=== PATIENT | female | born 1965 ===

== ENCOUNTER 2018-11-20 20:43 | Emergency (ER) | payer OTHER ==
[2018-11-20 21:17] VITALS: BP 154/73; PULSE 74; RESP 18; TEMP 99; O2SAT 98
--- NOTE | 2018-11-20 21:22 | C.PDOC ---
History Of Present Illness 53 y/o female pt presents to the ER c/o whistling sound and pain in the left ear for x1 week. Pt reports she also felt like she had a fever this morning. Pt denies trauma, sore throat, chills, nausea, vomiting and eye pain. Time Seen by Provider: 11/20/18 20:58 Chief Complaint (Nursing): ENT Problem Past Medical History Vital Signs: Last Vital Signs Temp 99 F 11/20/18 20:52 Pulse 74 11/20/18 21:01 Resp 18 11/20/18 21:01 BP 154/73 H 11/20/18 20:52 Pulse Ox 98 11/20/18 21:01 Family History: States: Unknown Family Hx - Social History Hx Alcohol Use: No Hx Substance Use: No - Immunization History Hx Tetanus Toxoid Vaccination: No Hx Influenza Vaccination: No Hx Pneumococcal Vaccination: No Review Of Systems Constitutional: Positive for: Fever (subjective). Negative for: Chills Eyes: Negative for: Pain ENT: Positive for: Ear Pain (left ), Other (whistling sound in left ear). Negative for: Ear Discharge Gastrointestinal: Negative for: Nausea, Vomiting Physical Exam - Physical Exam Appears: Non-toxic, No Acute Distress Skin: Warm, Dry, No Rash Head: Atraumatic, Normacephalic, No Tenderness, No Swelling, No Abrasion, No Laceration Eye(s): bilateral: Normal Inspection Ear(s): Bilateral: Normal Nose: No Discharge Oral Mucosa: Moist Throat: No Erythema, No Exudate Neck: Normal ROM, Supple Cardiovascular: Rhythm Regular Respiratory: Normal Breath Sounds Neurological/Psych: Oriented x3, Normal Speech, Normal Cognition ED Course And Treatment O2 Sat by Pulse Oximetry: 98 (RA) Pulse Ox Interpretation: Normal Medical Decision Making Medical Decision Making: Plans: -- tylenol Pt is advised to f/u with clinic in 1-2 days. Disposition Counseled Patient/Family Regarding: Diagnosis, Need For Followup - Disposition Referrals: [facility] [Outside] Rolf Summers MD [Staff Provider] - Disposition: HOME/ ROUTINE Disposition Time: 21:24 Condition: GOOD Additional Instructions: Seguimiento en la clnica mdica para el dolor de odo y zumbidos. Si es necesario, se lo derivar a un especialista en orejas o puede ir a verlo por mcelroy cuenta. Follow up in medical clinic for ear pain and ringing. If needed, you will be referred to ear speicialist, or can go see him on your own. Instructions: Tinnitus (Ringing in the Ears) Forms: [facility] (Danish), Gen Discharge Inst Danish Print Language: SUDANESE - Clinical Impression Clinical Impression: New onset tinnitus of left ear - PA / [employer] / Resident Statement MD/DO has reviewed & agrees with the documentation as recorded. - Scribe Statement The provider has reviewed the documentation as recorded by the Britni López Do All medical record entries made by the Heathibe were at my direction and personal ly dictated by me. I have reviewed the chart and agree that the record accurately reflects my personal performance of the history, physical exam, medical decision making, and the department course for this patient. I have also personally directed, reviewed, and agree with the discharge instructions and disposition.
== END 2018-11-20 21:56 | disposition home or self-care (01) ==
LOC: C.ER 20:43
DX: H93.12 Tinnitus, left ear (principal)